=== PATIENT | female | born 1965 | race African-American/Black ===

== ENCOUNTER 2017-10-25 21:08 | Emergency (ER) | payer BC ==
[~2017-10-25] VITALS: Ht 167.6 cm; Wt 73.0 kg
[2017-10-25 23:03] LABS: HEMATOCRIT 39.8 % (36.0-46.0); MCH 28.2 PG (29.0-34.0); MCHC 32.7 G/DL (30.0-36.0); MCV 86.3 FL (83-99); PLATELET COUNT 299 K/uL (156-360); RBC DIS.WIDTH-CV 12.7 % (11.8-14.6); RBC DIS.WIDTH-SD 39.9 % (39-53); RED BLOOD COUNT 4.61 M/uL (3.80-5.20); WHITE BLOOD COUNT 9.3 K/uL (4.1-10.2)
[2017-10-25 23:08] LABS: CHLORIDE 106 mEq/L (99-109); POTASSIUM 3.9 mEq/L (3.7-5.4); SODIUM 141 mEq/L (136-147)
[2017-10-25 23:10] LABS: GLUCOSE 98 mg/dL (70-99)
[2017-10-25 23:14] LABS: CREATININE 1.1 mg/dL (0.6-1.3)
[2017-10-25 23:15] LABS: UREA NITROGEN (BUN) 15 mg/dL (9-23)
[2017-10-25 23:28] LABS: GFR ESTIMATE (CALCULATED) 56 mL/min/
[2017-10-26 03:49] LABS: ACETAMINOPHEN (TYLENOL) < 10 mcg/mL (10-30); SALICYLATE < 5.0 MG/DL (15-30)
[2017-10-26 04:18] VITALS: BP 127/77
== END 2017-10-26 04:23 | disposition home or self-care (01) ==
LOC: EME 21:08
PROVIDERS: Physician Assistant
DX: R51 Headache (principal); H93.13 Tinnitus, bilateral; J33.8 Other polyp of sinus; E78.5 Hyperlipidemia, unspecified; F17.200 Nicotine dependence, unspecified, uncomplicated
CPT/HCPCS: 70450; 80048; 85027; 93005; 99281; 99284; G0480; J0780; J1100; J1200; J1885; J7030

== ENCOUNTER → 2017-12-22 | Outpatient (CLI) | payer BC | END | disposition home or self-care (01) | LOC: CDC 13:03 | DX: Z01.810 Encounter for preprocedural cardiovascular examination (principal); M25.561 Pain in right knee; M17.11 Unilateral primary osteoarthritis, right knee; S83.281A Other tear of lateral meniscus, current injury, right knee, initial encounter | CPT/HCPCS: 93000 ==